=== PATIENT | female | born 1940 | race Caucasian/White ===

== ENCOUNTER 2018-06-21 19:51 | Emergency (ER) | payer MEDICARE, OTHER ==
[~2018-06-21] VITALS: Ht 157.5 cm; Wt 90.0 kg
[2018-06-21] MEDS ORDERED: HYDR25TA84 PO (20:10)
[2018-06-21] MEDS ORDERED: CALC25 PO (20:10)
[2018-06-21] MEDS ORDERED: METO50 PO (20:10)
[2018-06-21] MEDS ORDERED: OMEP20 PO (20:10)
[2018-06-21] MEDS ORDERED: ASPI-1182 PO (20:10)
[2018-06-21] MEDS ORDERED: CALC-1085 PO (20:10)
[2018-06-21] MEDS ORDERED: ATOR40TA28 PO (20:10)
[2018-06-21] MEDS ORDERED: LEVO75 PO (20:10)
[2018-06-21 20:22] LABS: GLUCOSE,POINT OF CARE 333 MG/DL (70-110)
[2018-06-21 21:53] LABS: BASOPHILS % (AUTO) 0.9 % (0.0-2.0); EOSINOPHILS % (AUTO) 2.8 % (1.0-6.0); HEMATOCRIT 30.8 % (36-46); HEMOGLOBIN 10.4 g/dL (12.0-16.0); LYMPHOCYTES # (AUTO) 1.5 K/uL (1.0-4.8); LYMPHOCYTES % (AUTO) 39.1 % (22.0-44.0); MEAN CORPUSCULAR HEMOGLOBIN 28.4 pg (26.0-34.0); MEAN CORPUSCULAR HGB CONC 33.7 G/dL (31.0-37.0); MEAN CORPUSCULAR VOLUME 84 fL (80-100); MONOCYTES # (AUTO) 0.4 K/uL (0.1-1.0); MONOCYTES % (AUTO) 10.2 % (2.0-9.0); NEUTROPHILS # (AUTO) 1.8 K/uL (1.8-7.7); PLATELET COUNT (AUTO) 132 K/uL (150-450); RED BLOOD CELL COUNT(AUTO) 3.66 MIL/uL (4.00-5.20); RED CELL DISTRIBUTION WIDTH 13.3 % (11.5-14.5)
[2018-06-21 22:22] LABS: CALCIUM, TOTAL 9.7 mg/dL (8.8-10.5); CREATININE 2.24 mg/dL (0.60-1.30); POTASSIUM 4.2 mmol/L (3.5-5.1)
[2018-06-21 22:27] LABS: ALBUMIN 2.6 g/dL (3.4-5.0); BILIRUBIN,TOTAL 0.3 mg/dL (0.1-1.0); TOTAL PROTEIN, SERUM 6.5 g/dL (6.4-8.2)
[2018-06-21] MEDS: SODIUM CHLORIDE 0.9% 1,000 ML IV ONE (22:51)
[2018-06-21] MEDS: CloNIDine HCL 0.2 MG TABLET PO ONE (23:36)
[2018-06-21 23:37] LABS: GLUCOSE,POINT OF CARE 251 MG/DL (70-110)
[2018-06-22 00:15] VITALS: BP 162/67
== END 2018-06-22 00:22 | disposition home or self-care (01) ==
LOC: EMS 19:52
DX: E11.65 Type 2 diabetes mellitus with hyperglycemia (principal); I10 Essential (primary) hypertension; E78.00 Pure hypercholesterolemia, unspecified; E03.9 Hypothyroidism, unspecified; Z79.82 Long term (current) use of aspirin
CPT/HCPCS: 82948; 96360